=== PATIENT | male | born 1960 | race Caucasian/White ===

== ENCOUNTER 2018-08-24 12:14 | Inpatient (IN) ==
[2018-08-24] MEDS ORDERED: Chlorhexidine Gluconate 2% 1 Pack (2 Cloths) TOPICAL SCH (13:26)
[2018-08-24] MEDS ORDERED: Metoprolol Tartrate 25 MG Tablet PO SCH (13:26)
--- NOTE | 2018-08-24 13:37 | P.HPUP ---
The Pre-Admit History and Physical Examination regarding the above named patient was reviewed (including, but not limited to, vital signs, heart, lungs, co-morbid conditions), and upon re-examination it is noted that: the patient's condition has not significantly changed since the last examination.
[2018-08-24] MEDS ORDERED: Dextrose 5%/NaCl 0.9% Inj 1,000 ML IV.SIG SCH (13:45)
[2018-08-24] MEDS ORDERED: Sodium Chlor 0.9% Inj 500 ML IV.SIG SCH (14:00)
[2018-08-24] MEDS ORDERED: Lidocaine PF 1% Inj 5 ML Syringe OTHER ONE (14:05)
[2018-08-24] MEDS ORDERED: Sod Chloride 0.9% Inj 1,000 ML IV.CONT ONE (14:05)
[2018-08-24] MEDS ORDERED: Normosol-R pH 7.4 Inj 2,000 ML IV.CONT ONE (14:05)
--- NOTE | 2018-08-24 14:48 | P.OP ---
- Preoperative Diagnosis (1) Diverticulitis (2) Diverticulitis - Postoperative Diagnosis (1) Diverticulitis Date of procedure: 08/24/18 Procedure: Urethral dilatation, cystoscopy with placement of bilateral ureteral catheters Anesthesia: CAR Surgeon: Tarik Kidd DO Estimated blood loss (mL): 0 Operation and Findings: 58-year-old male with findings of diverticulitis who elected to undergo colon resection by Dr. Redd and Dr. Ansari. Request made for bilateral ureteral catheter insertion. Patient was brought to the operating room and placed in the dorsal lithotomy position. He was prepped and draped in usual sterile fashion, received preprocedure antibiotics and general endotracheal tube anesthesia was administered. Initially, the 22 Nicaraguan cystoscope was unable to be passed through the urethral meatus due to meatal stenosis. Urethral dilatation occurred with male sounds starting with an 18F and going up to a 24 Nicaraguan sound. The scope then passed and easily and the left ureteral orifice was identified. A 5 Nicaraguan opening catheter was inserted in the left ureters up into the kidney without difficulty. This was again repeated on the right side without difficulty. Gallegos was then inserted and the catheters were attached to the Gallegos. Patient tolerated procedure well.
[2018-08-24] MEDS ORDERED: Bupivacaine PF 0.5% Inj 30 ML Vial ONE ×3 (14:49)
[2018-08-24] MEDS ORDERED: fentaNYL Citrate Inj 100 MCG/2 ML Ampul ONE ×3 (15:08→17:43)
[2018-08-24] MEDS ORDERED: HYDROmorphone PF Inj 2 MG/ML Vial ONE ×2 (15:13→18:00)
[2018-08-24] MEDS ORDERED: Glycopyrrolate Inj 1 MG/5 ML Syringe IV.PUSH ONE (17:00)
[2018-08-24] MEDS ORDERED: Neostigmine Inj 5 MG/5 ML Syringe IV.PUSH ONE (17:00)
[2018-08-24] MEDS ORDERED: Potassium Chlor 20 mEq Premix 20 MEQ/100 ML PIGGYBACK IV.SIG PRN (17:33)
[2018-08-24] MEDS ORDERED: Acetaminophen 325 MG Tablet PO PRN (17:33)
[2018-08-24] MEDS ORDERED: Ketorolac Inj 30 MG/ML (IVP) Vial IV.PUSH PRN (17:33)
[2018-08-24] MEDS ORDERED: Potassium Chlor 40 mEq Premix 40 MEQ/100 ML PIGGYBACK IV.SIG PRN (17:33)
[2018-08-24] MEDS: KCL 20 mEq/D5W/NaCl 0.9% Inj 1,000 ML IV.CONT SCH (18:20)
[2018-08-24] MEDS ORDERED: Naloxone Inj 0.4 MG/ML Vial IV.PUSH PRN (18:52)
[2018-08-24] MEDS: Morphine Inj 30 MG/30 ML PCA.VIAL PCA PRN (21:43)
[2018-08-25] MEDS: KCL 20 mEq/D5W/NaCl 0.9% Inj 1,000 ML IV.CONT SCH ×4 (00:25→18:06)
[2018-08-25] MEDS: Morphine Inj 30 MG/30 ML PCA.VIAL PCA PRN ×2 (02:48→13:57)
[2018-08-25 04:16] LABS: Baso % (Auto) 0.2 % (0.0-2.0); Hematocrit 38.5 % (39.0-51.0); Hemoglobin 12.7 gm/dL (13.0-17.0); Lymph # (Auto) 0.4 th/mm3 (1.0-4.8); Lymph % (Auto) 2.6 % (9.0-44.0); Mean Corpuscular HGB Conc 33.1 % (32.0-36.0); Mean Corpuscular Hemoglobin 26.9 pg (27.0-34.0); Mean Corpuscular Volume 81.3 fL (80.0-100.0); Mean Platelet Volume 7.4 fL (7.0-11.0); Mono # (Auto) 0.8 th/mm3 (0.0-0.9); Mono % (Auto) 4.6 % (0.0-8.0); Neut # (Auto) 16.2 th/mm3 (1.8-7.7); Neut % (Auto) 92.6 % (16.0-70.0); Platelet Count 328 th/mm3 (150-450); Red Blood Count 4.73 mil/mm3 (4.50-5.90); Red Cell Distribution Width 16.6 % (11.6-17.2); White Blood Count 17.5 th/mm3 (4.0-11.0)
[2018-08-25 04:35] LABS: Anion Gap 10 meq/L (5-15); Blood Urea Nitrogen 7 mg/dL (7-18); Calcium 7.6 mg/dL (8.5-10.1); Carbon Dioxide 23.4 meq/L (21.0-32.0); Chloride 107 meq/L (98-107); Glomerular Filtration Rate Greater Than 89 mL/min (>89); Glucose,Random 216 mg/dL (74-106); Potassium 4.1 meq/L (3.5-5.1); Sodium 140 meq/L (136-145)
[2018-08-25] MEDS: Pantoprazole Inj 40 MG Vial IV.PUSH SCH (08:54)
[2018-08-25] MEDS: amLODIPine 10 MG Tablet PO SCH (08:56)
--- NOTE | 2018-08-25 10:59 | P.PNCS ---
Subjective Colorectal Surgery Post Op Day #: 1 Interval history: afebrile, VSS UO good FANY serous Objective Result Diagrams: 08/25/18 03:42 08/25/18 03:42 Objective Remarks: PE alert Abd - soft, wound dry, stoma viable Assessment and Plan - Plan Imp: stable post-op OOB decr IVF tx to floor
--- NOTE | 2018-08-25 14:57 | MP ---
cc: Ramírez Redd MD, Andrew H MD DATE OF OPERATION: 08/24/2018 DATE OF PROCEDURE: 08/24/2018 PREOPERATIVE DIAGNOSIS: Chronic diverticular disease with partial obstruction. PROCEDURE: Exploratory laparotomy with proctosigmoidectomy, low pelvic anastomosis, diverting ileostomy, appendectomy and omental flap, on- table bowel prep. POSTOPERATIVE DIAGNOSIS: Chronic diverticulitis with obstruction and localized abscess formation. SURGEON: Ramírez Redd MD CANT GANG SAWYER: Cosmo Kirk MD PROCEDURE: The patient was placed in the supine position. After adequate general anesthesia, his legs were placed in the universal stirrups and supported appropriately. The abdomen and perineum were then prepped with Betadine solution and draped in the usual sterile fashion. With Dr. Kirk's assistance, the abdomen was opened through an infraumbilical transverse incision, dividing the rectus muscles with electrocautery. Exploration revealed a rock hard mass in the right lower abdomen involving the cecum and appendix as well as loops of small bowel and the sigmoid colon. There was quite a bit of chronic inflammatory process, but no acute abscess was identified. Process was also stuck very densely adherent to the parietal peritoneum of the lower abdominal wall. The remainder of the small bowel was palpated to the ligament of Treitz and felt to be pretty unremarkable. The proximal colon was quite full of liquid stool and feces all the way back to the cecum. The liver and gallbladder were unremarkable. The stomach and duodenum were normal. The great vessels were of normal caliber. First, the sigmoid colon was mobilized medially by dividing along the white line of Toldt. The left ureteral stent was easily palpable and preserved. Dissection then proceeded, freeing the appendix from the inflammatory process noting it to be extremely thick walled and edematous. Therefore, it was elected to remove the appendix by dividing the mesoappendix between Raven's and stapling the appendix at its junction with the cecum using a TA 30 stapler. The remainder of the right colon and terminal ileum were then mobilized. Dense adhesions between the inflammatory process and the small bowel mesentery were also freed mobilizing the bowel up out of the pelvis. Attention was then turned to the pelvis and the right retroperitoneal space was then opened. The bowel dissected off the presacral fascia to try to preserve the presacral nerves. The pedicle for the superior hemorrhoidal vessels identified and divided between Raven's, obtaining hemostasis with Vicryl ties. The right ureteral stent was densely adherent to this inflammatory process, but was palpated and preserved along its entirety. Once the bowel mobilized down to the pelvis. The anterior cul-de-sac was opened and bowel dissected off the prostatic fascia and the seminal vesicles, finally obtaining what appeared to be softer bowel below the peritoneal reflection. The mesorectum was taken with electrocautery and the bowel finally divided in the proximal rectum, using a TA 60 stapling device. The bowel was then mobilized off the left gutter, taking down attachments to the splenic flexure for full left mobilization. The left colic vessels were able to be left intact. There was enough redundant bowel to reach the rectal pouch without tension and with good blood supply dividing the marginal artery at the appropriate point and then dividing the bowel between a pursestring suture device and a Lissett clamp removing the specimen. The end of the bowel was sized to accept a 33 mm EEA stapling anvil, and this was secured with the pursestring suture. Dr. Kirk inserted into the stapling instrument transanally and under direct vision came the rectal pouch. The trocar advanced. The stapler was then reassembled. The bowel aligned properly. The stapled closed and fired. Upon withdrawal 2 complete donuts of tissue was seen. Gentle insufflation did confirm an airtight anastomosis. ADDENDUM: It should be noted prior to the anastomosis the proximal bowel was prepped with several liters of normal saline until the effluent appeared clear. Finally, the abdomen was irrigated copiously. Adequate hemostasis achieved at all sites. The abscess cavity and the abdominal wall was curetted and cleaned for debridement. Joel-Juarez drain placed down into the presacral space and brought out through a stab wound in the right lower quadrant, secured to the skin with a nylon suture. A loop of distal ileum proximal to the inflammatory process was chosen and an avascular plane created in the mesentery. The distal limb was closed with a TA 30 stapling. A circular stab wound was created in the right upper quadrant and the loop brought up through the stab wound without tension and with good blood supply. . The omentum was then mobilized off the transverse colon and passed down the left gutter into the pelvis to wrap around the anastomosis and filled the abscess cavity. A transverse incision was then closed anatomically in 2 layers using #1 PDS sutures to reapproximate the respective fascial layers. On-Q catheters were placed into the rectus sheaths on both sides and brought up through subcutaneous tunnels above the transverse incision. The subcutaneous tissue was irrigated copiously and the skin closed with a row of surgical kelechi. Wound area washed with normal saline and dried, sterile dressing and Telfa and gauze applied. Finally, the ileostomy was matured in the usual Gladys fashion by creating a transverse enterotomy and maturing the proximal limb with a row of interrupted chromic catgut sutures around the circumference. At completion, the ileostomy appeared to be viable and was patent through the fascia level. A sterile ileostomy appliance was fitted over the new stoma. The patient tolerated the procedure quite well and was brought to the recovery room in stable condition. Sponge and needle counts were correct at the end of this procedure. Ramírez Redd MD [facility]/ , 11:49 AM , 12:03 PM
--- NOTE | 2018-08-25 18:14 | P.PNWCN ---
Wound Care Nurse Consult Description: Consult for New Ostomy Teaching per Dr Redd Communicated with: Patient Recommendation: Empty pouch when 1/3-1/2 full Change pouching system Q3-5D and when leaking Additional information: Patient seen on for ostomy assessment, teaching, and changing of pouch from urinary pouch to open ended pouch on ileostomy. Bowel Diversion Stoma - Bowel Stoma Right Lower Abdomen Stoma Appearance: Protruding, Round Collection Device: Two-piece Drainage Description: Soft, Liquid, Green Wafer Size: 2 1/ Moldable Stoma Care: Pouch Changed
[2018-08-26] MEDS: Morphine Inj 30 MG/30 ML PCA.VIAL PCA PRN (01:26)
[2018-08-26 05:03] LABS: Baso # (Auto) 0.1 th/mm3 (0.0-0.2); Baso % (Auto) 0.3 % (0.0-2.0); Eos % (Auto) 0.2 % (0.0-4.0); Hematocrit 37.1 % (39.0-51.0); Hemoglobin 12.4 gm/dL (13.0-17.0); Lymph # (Auto) 1.6 th/mm3 (1.0-4.8); Lymph % (Auto) 9.8 % (9.0-44.0); Mean Corpuscular HGB Conc 33.5 % (32.0-36.0); Mean Corpuscular Hemoglobin 26.8 pg (27.0-34.0); Mean Platelet Volume 7.6 fL (7.0-11.0); Mono # (Auto) 1.1 th/mm3 (0.0-0.9); Mono % (Auto) 6.7 % (0.0-8.0); Neut # (Auto) 13.2 th/mm3 (1.8-7.7); Platelet Count 333 th/mm3 (150-450); Red Blood Count 4.64 mil/mm3 (4.50-5.90); Red Cell Distribution Width 16.9 % (11.6-17.2); White Blood Count 15.9 th/mm3 (4.0-11.0)
[2018-08-26 05:43] LABS: Anion Gap 6 meq/L (5-15); Blood Urea Nitrogen 4 mg/dL (7-18); Calcium 8.2 mg/dL (8.5-10.1); Carbon Dioxide 26.6 meq/L (21.0-32.0); Chloride 104 meq/L (98-107); Glomerular Filtration Rate Greater Than 89 mL/min (>89); Glucose,Random 106 mg/dL (74-106); Sodium 137 meq/L (136-145)
[2018-08-26] MEDS: KCL 20 mEq/D5W/NaCl 0.9% Inj 1,000 ML IV.CONT SCH ×2 (06:00→17:25)
[2018-08-26] MEDS: Pantoprazole Inj 40 MG Vial IV.PUSH SCH (08:41)
[2018-08-26] MEDS: amLODIPine 10 MG Tablet PO SCH (08:42)
--- NOTE | 2018-08-26 11:42 | P.PNWCN ---
Wound Care Nurse Consult Description: Consult for New Ostomy Teaching per Dr Redd Communicated with: Patient Recommendation: Empty pouch when 1/3-1/2 full Change pouching system using 1 3/4" moldable wafer Q3-5D and when leaking Additional information: Patient seen on for ostomy assessment, pouching system change, and reinforcement of teaching with demonstration. Consent obtained for starter kit to be sent out, which was done today. Patient needs script on chart for supplies before discharge. Bowel Diversion Stoma - Bowel Stoma Right Lower Abdomen Stoma Edema: Yes Stoma Appearance: Oval (red and moist and functioning), Protruding Collection Device: Two-piece (1 3/4") Drainage Description: Liquid, Green Wafer Size: 1 3/4 Moldable 45mm Stoma Care: Pouch Changed, Skin Care (Supplies ordered from [facility] for patient to go home with at discharge) Nathaly-Stomal Skin Appearance: Intact Nathaly-Stomal Surrounding Tissue Sensation Description: No Symptoms
[2018-08-26] MEDS: Metoprolol Inj 5 MG/5 ML Vial IV.PUSH PRN (20:16)
--- NOTE | 2018-08-26 21:22 | P.PNCS ---
Subjective Colorectal Surgery Post Op Day #: 2 Interval history: afebrile, VSS UO good FANY mod Objective Result Diagrams: 08/26/18 04:06 08/26/18 04:06 Objective Remarks: PE alert Abd - soft, wound dry, stoma viable min tympany Assessment and Plan - Plan Imp: mark PINEDA decr IVF tx to floor
[2018-08-26] MEDS ORDERED: LORazepam 1 MG Tablet PO ONE (21:45)
[2018-08-27] MEDS: Morphine Inj 30 MG/30 ML PCA.VIAL PCA PRN (03:30)
[2018-08-27] MEDS: KCL 20 mEq/D5W/NaCl 0.9% Inj 1,000 ML IV.CONT SCH ×2 (05:45→15:31)
[2018-08-27] MEDS: Pantoprazole Inj 40 MG Vial IV.PUSH SCH (08:36)
[2018-08-27] MEDS: amLODIPine 10 MG Tablet PO SCH (08:37)
[2018-08-27] MEDS: Metoprolol Inj 5 MG/5 ML Vial IV.PUSH PRN (12:38)
[2018-08-27 12:51] LABS: Anion Gap 10 meq/L (5-15); Blood Urea Nitrogen 10 mg/dL (7-18); Calcium 8.5 mg/dL (8.5-10.1); Chloride 106 meq/L (98-107); Glomerular Filtration Rate Greater Than 89 mL/min (>89); Glucose,Random 137 mg/dL (74-106); Magnesium 1.7 mg/dL (1.5-2.5); Potassium 3.6 meq/L (3.5-5.1); Sodium 140 meq/L (136-145)
--- NOTE | 2018-08-27 17:50 | P.PNWCN ---
Wound Care Nurse Consult Description: Consult for follow up Teaching per Dr Redd Communicated with: RN Dolly [facility] and patient Recommendation: Empty pouch when 1/3-1/2 full Change pouching system using 1 3/4" moldable wafer Q3-5D and when leaking Bowel Diversion Stoma - Bowel Stoma Right Lower Abdomen Stoma Edema: Yes Stoma Appearance: Beefy Red, Protruding, Round Loop Supporting Dillan: No Collection Device: Two-piece, Moldable Wafer Drainage Description: Liquid, Green Wafer Size: 1 3/4 Moldable 45mm Nathaly-Stomal Surrounding Tissue Sensation Description: No Symptoms - Additional Information Additional Information: Patient seen on for follow up ileostomy teaching and stoma assessment. Stoma presents as red in color, round, and protruding. Per RN, Ileostomy appliance was changed earlier today due to leaking. Ileostomy appliance is currently dry and intact. RN to empty pouch when 1/3 to 1/2 full.
--- NOTE | 2018-08-27 17:52 | P.DCO ---
- Physical Therapy Order: Evaluate and treat, Improve ambulation, Strength and gait training - Case Management Consult Yes - Certification I have seen patient Fernando Culp on 08/27/18. My clinical findings support the need for the requested home health care services because: Limited mobility due to disease progression, Deconditioned with increased weakness, High risk of falls I certify that my clinical findings support that this patient is homebound because: Post-op weakness, Unsafe to leave home unassisted (stoma care)
--- NOTE | 2018-08-27 21:35 | P.PNCS ---
Subjective Colorectal Surgery Post Op Day #: 3 Interval history: afebrile, VSS - HR 140 stoma functioning UO good Objective Result Diagrams: 08/26/18 04:06 08/27/18 12:10 Objective Remarks: PE alert Abd - soft, wound dry, stoma viable min tympany, On -Q dc'd Assessment and Plan - Assessment (1) Diverticulitis Code(s): K57.92 - Diverticulitis of intestine, part unspecified, without perforation or abscess without bleeding Status: Acute - Plan Imp: lasix OOB decr IVF lopressor to decr HR
[2018-08-28] MEDS: KCL 20 mEq/D5W/NaCl 0.9% Inj 1,000 ML IV.CONT SCH ×2 (06:09→19:35)
[2018-08-28] MEDS: Pantoprazole Inj 40 MG Vial IV.PUSH SCH (08:07)
[2018-08-28] MEDS: amLODIPine 10 MG Tablet PO SCH (08:07)
[2018-08-28] MEDS: Metoprolol Inj 5 MG/5 ML Vial IV.PUSH PRN (08:07)
--- NOTE | 2018-08-28 10:07 | P.PNCS ---
Subjective Colorectal Surgery Post Op Day #: 4 Interval history: Pt quite anxious. Wants to go home. Still has sinus tachycardia. Will start oral Lopressor. Just started Regular diet Objective Result Diagrams: 08/26/18 04:06 08/27/18 12:10 Objective Remarks: Abd: soft,flat. Wound clean. Ileostomy working. Assessment and Plan - Assessment (1) Diverticulitis Code(s): K57.92 - Diverticulitis of intestine, part unspecified, without perforation or abscess without bleeding Status: Acute - Plan Start PO Lopressor Needs solid food and monitor Ileostomy output before D/C.
[2018-08-28] MEDS: Metoprolol Tartrate 25 MG Tablet PO SCH ×2 (13:15→17:58)
[2018-08-28 23:23] VITALS: O2SAT 98
[2018-08-29] MEDS: Metoprolol Tartrate 25 MG Tablet PO SCH ×2 (08:55→12:52)
[2018-08-29] MEDS: amLODIPine 10 MG Tablet PO SCH (08:55)
[2018-08-29] MEDS: Pantoprazole Inj 40 MG Vial IV.PUSH SCH (08:57)
[2018-08-29 11:16] VITALS: BP 133/90; PULSE 98; RESP 17; TEMP 98.9
--- NOTE | 2018-08-30 16:14 | P.DCO ---
- Home Health Nursing Order: Medical education, Signs/symptoms of disease process, Wound care and dressing changes - Case Management Consult Yes - Certification I have seen patient Fernando Culp on 08/30/18. My clinical findings support the need for the requested home health care services because: Deconditioned with increased weakness, Need for psychosocial assistance, Infection with risk of complications I certify that my clinical findings support that this patient is homebound because: Post-op weakness, Unsafe to leave home unassisted (stoma care)
--- NOTE | 2018-09-09 10:58 | MD ---
cc: Ramírez Redd MD, Teresa DATE OF DISCHARGE: 08/29/2018 ADMITTING DIAGNOSIS: History of diverticulitis. PROCEDURES: On 08/24/2018, exploratory laparotomy with proctosigmoidectomy, low pelvic anastomosis, diverting ileostomy, appendectomy, and omental flap, on-table bowel prep. DISCHARGE DIAGNOSES: Complex chronic diverticulitis with obstruction and localized abscess formation. HISTORY OF PRESENT ILLNESS: Mr. Culp is a 58-year-old male who has been in relatively good health being followed as an outpatient now for abdominal pain consistent with diverticulitis. He has gotten somewhat improved with courses of antibiotics; however, he has gotten worse each time the antibiotics have been stopped. The patient has had a CT scan showing significant inflammation of the rectosigmoid. Despite maximal medical management, his symptoms continued to worsen and he was brought to the operating room today for an elective resection of the involved sigmoid colon. Please see the admitting history and physical for more complete past medical and surgical history. PERTINENT PHYSICAL: Very pleasant, well-developed male in no acute distress. Abdomen was soft and flat, not really distended. Normal bowel sounds. There was some tenderness in the lower abdomen. No rebound, guarding, or masses. Anal inspection revealed benign canal. Digital exam revealed good tone with no masses or tenderness and smooth mucosa. HOSPITAL COURSE: After admission, the patient was taken to the operating room where he was found to have an extremely chronic phlegmon in the pelvis involving the rectosigmoid, appendix, and cecum. There was a small abscess cavity, but no active acute inflammation. The patient underwent a proctosigmoidectomy with low pelvic anastomosis. Due to the amount of inflammation and obstruction, he needed an on-table bowel prep and a diverting ileostomy, appendectomy as well due to the involvement of the appendix and cecum. The patient tolerated the procedure quite well. Postoperatively, he was stabilized in the progressive care unit. His GI tract function returned quite promptly and his diet was advanced accordingly. The patient education was able to help with the teaching of his new ileostomy care. The patient did have a sinus tachycardia treated with Lopressor and appeared to resolve quite promptly. The patient was eating well, ambulating without any trouble, and considered ready for discharge home on 08/29/2018. Final pathology report revealed segment of acute diverticulitis with pericolonic abscess formation, giant cell reaction, and localized perforation. The appendix did show a periappendiceal abscess and extensive fibrosis luminal obliteration. No evidence of malignancy. DISCHARGE INSTRUCTIONS: The patient was discharged eating a regular diet. He was encouraged to increase his fluid content to help offset the ileostomy losses. Home health was arranged to help with care of his new ileostomy. The patient will continue his home medications with the addition of the Lopressor and will be referred back to his family doctor for further evaluation and medical evaluation. The patient will be seen in the office in 1 week's time for routine followup. Any problems prior to his scheduled office visit, he was encouraged to call for more urgent attention. Ramírez Redd MD [facility]/rs , 10:37 AM , 10:47 AM
== END 2018-08-29 12:45 | disposition home health service (06) ==
LOC: HSDI 12:14 → HCPC 18:47 → N07 08-27 01:25 → HCPC 08-27 11:15
PROVIDERS: ADMIT Colon & Rectal Surgery; ATTEND Colon & Rectal Surgery

== ENCOUNTER 2018-10-25 12:02 | Inpatient (IN) ==
[2018-10-25] MEDS ORDERED: Chlorhexidine Gluconate 2% 1 Pack (2 Cloths) TOPICAL ONE (12:51)
[2018-10-25] MEDS ORDERED: Metoprolol Tartrate 25 MG Tablet PO ONE (12:51)
[2018-10-25] MEDS ORDERED: Dextrose 5%/NaCl 0.9% Inj 1,000 ML IV.CONT SCH (13:00)
[2018-10-25] MEDS ORDERED: ceFAZolin 1 GM Premix Inj 1 GM/50 ML IV.SIG SCH (13:00)
[2018-10-25] MEDS ORDERED: Sodium Chlor 0.9% Inj 500 ML IV.SIG SCH (13:00)
[2018-10-25] MEDS ORDERED: Bupivacaine 0.5% Inj 50 ML MDV Vial ONE (13:47)
[2018-10-25 13:49] LABS: Baso % (Auto) 0.4 % (0.0-2.0); Eos # (Auto) 0.1 th/mm3 (0.0-0.4); Eos % (Auto) 0.8 % (0.0-4.0); Hematocrit 40.7 % (39.0-51.0); Hemoglobin 14.5 gm/dL (13.0-17.0); Lymph # (Auto) 1.6 th/mm3 (1.0-4.8); Lymph % (Auto) 18.2 % (9.0-44.0); Mean Corpuscular HGB Conc 35.7 % (32.0-36.0); Mean Corpuscular Hemoglobin 29.7 pg (27.0-34.0); Mean Corpuscular Volume 83.1 fL (80.0-100.0); Mean Platelet Volume 7.4 fL (7.0-11.0); Mono # (Auto) 0.6 th/mm3 (0.0-0.9); Mono % (Auto) 6.4 % (0.0-8.0); Neut # (Auto) 6.7 th/mm3 (1.8-7.7); Neut % (Auto) 74.2 % (16.0-70.0); Platelet Count 237 th/mm3 (150-450); Red Blood Count 4.89 mil/mm3 (4.50-5.90); Red Cell Distribution Width 15.6 % (11.6-17.2)
[2018-10-25] MEDS ORDERED: Potassium Chlor 20 mEq Premix 20 MEQ/100 ML PIGGYBACK IV.SIG PRN (15:34)
[2018-10-25] MEDS ORDERED: Acetaminophen 325 MG Tablet PO PRN (15:34)
[2018-10-25] MEDS ORDERED: Ketorolac Inj 30 MG/ML (IVP) Vial IV.PUSH PRN (15:34)
[2018-10-25] MEDS ORDERED: Potassium Chlor 40 mEq Premix 40 MEQ/100 ML PIGGYBACK IV.SIG PRN (15:34)
[2018-10-25] MEDS ORDERED: Naloxone Inj 0.4 MG/ML Vial IV.PUSH PRN (15:34)
[2018-10-25] MEDS ORDERED: fentaNYL Citrate Inj 100 MCG/2 ML Ampul ONE (15:38)
[2018-10-25] MEDS ORDERED: Morphine Inj 4 MG/ML Vial ONE (15:39)
[2018-10-25] MEDS ORDERED: *morphine SULFATE 4 MG/ML PERIprocedure ONLY ONE ×2 (15:48→16:01)
[2018-10-25] MEDS ORDERED: Morphine Inj 30 MG/30 ML PCA.VIAL PCA ONE (15:52)
[2018-10-25] MEDS ORDERED: KCL 20 mEq/D5W/NaCl 0.9% Inj 1,000 ML ONE (15:52)
[2018-10-25] MEDS: Morphine Inj 30 MG/30 ML PCA.VIAL PCA PRN (16:13)
[2018-10-25] MEDS: KCL 20 mEq/D5W/NaCl 0.9% Inj 1,000 ML IV.CONT SCH ×2 (16:13→22:40)
[2018-10-25] MEDS: ceFAZolin 1 GM Premix Inj 1 GM/50 ML IV.SIG SCH (22:38)
[2018-10-25] MEDS: Metoprolol Tartrate 25 MG Tablet PO SCH (22:38)
[2018-10-26] MEDS: Morphine Inj 30 MG/30 ML PCA.VIAL PCA PRN (05:13)
[2018-10-26] MEDS: ceFAZolin 1 GM Premix Inj 1 GM/50 ML IV.SIG SCH ×2 (05:17→08:15)
[2018-10-26 05:26] LABS: Hematocrit 41.2 % (39.0-51.0); Hemoglobin 14.2 gm/dL (13.0-17.0); Lymph % (Auto) 8.9 % (9.0-44.0); Mean Corpuscular HGB Conc 34.5 % (32.0-36.0); Mean Corpuscular Hemoglobin 28.8 pg (27.0-34.0); Mean Corpuscular Volume 83.4 fL (80.0-100.0); Mean Platelet Volume 7.6 fL (7.0-11.0); Mono # (Auto) 0.5 th/mm3 (0.0-0.9); Mono % (Auto) 4.7 % (0.0-8.0); Neut # (Auto) 9.2 th/mm3 (1.8-7.7); Neut % (Auto) 86.4 % (16.0-70.0); Platelet Count 245 th/mm3 (150-450); Red Blood Count 4.95 mil/mm3 (4.50-5.90); Red Cell Distribution Width 15.7 % (11.6-17.2); White Blood Count 10.7 th/mm3 (4.0-11.0)
[2018-10-26] MEDS: KCL 20 mEq/D5W/NaCl 0.9% Inj 1,000 ML IV.CONT SCH ×2 (05:27→11:18)
[2018-10-26 05:50] LABS: Anion Gap 6 meq/L (5-15); Blood Urea Nitrogen 8 mg/dL (7-18); Calcium 8.3 mg/dL (8.5-10.1); Carbon Dioxide 24.8 meq/L (21.0-32.0); Chloride 108 meq/L (98-107); Glomerular Filtration Rate Greater Than 89 mL/min (>89); Glucose,Random 147 mg/dL (74-106); Sodium 139 meq/L (136-145)
[2018-10-26] MEDS: Metoprolol Tartrate 25 MG Tablet PO SCH ×3 (08:15→17:28)
[2018-10-26] MEDS: amLODIPine 10 MG Tablet PO SCH (08:16)
[2018-10-26] MEDS: Pantoprazole Inj 40 MG Vial IV.PUSH SCH (08:16)
--- NOTE | 2018-10-26 08:23 | MP ---
cc: Ramírez Redd MD DATE OF OPERATION: 10/25/2018 PREOPERATIVE DIAGNOSIS: History of diverticulitis, attention to ileostomy. POSTOPERATIVE DIAGNOSIS: History of diverticulitis attention to ileostomy. PROCEDURE PERFORMED: Exploratory laparotomy with segmental small bowel resection and closure of ileostomy. SURGEON: Ramírez Redd MD PROCEDURE: The patient was placed in the supine position. After adequate general anesthesia, his abdomen was prepped with Betadine solution and draped in the usual sterile fashion. An elliptical incision was made around the ileostomy, dissecting the proximal and distal limbs from the subcutaneous tissue. The fascial attachments were released and the bowel mobilized up out of the abdomen. There were some adhesions to the parietal peritoneum, which were also divided. A vascular plane was created proximal and distal to the ileostomy and the distal end divided between Kochers, proximal end divided using the CHAVA stapling device. The intervening mesentery taken between Raven's, obtaining hemostasis with Vicryl ties. Bowel continuity was then restored by firing the CHAVA stapler across the antimesenteric ends of the bowel, closing the enterotomy with a TA60 stapler. The mesenteric defect closed with a Vicryl suture. A 3-0 Vicryl crotch suture was placed as well. The bowel returned to the abdominal cavity. The abdominal wound was then closed anatomically in 2 layers using #1 PDS sutures to reapproximate the respective fascial layers. The subcutaneous tissue was irrigated copiously and the skin closed with a running subcuticular Vicryl suture. Wound area washed with normal saline and dried, sterile dressing of Telfa and gauze applied. The patient tolerated the procedure quite well and was brought to the recovery room in stable condition. Sponge and needle counts were correct at the end of the procedure. Ramírez Redd MD [facility]/kiki/naseem , 07:08 AM , 07:15 AM
[2018-10-26] MEDS ORDERED: NACL 0.9% IV.SIG SCH (17:45)
[2018-10-26] MEDS ORDERED: POTASSIUM CHLORIDE IV.SIG SCH (17:45)
[2018-10-26] MEDS ORDERED: DEXTROSE IV.SIG SCH (17:45)
--- NOTE | 2018-10-26 23:20 | P.PNCS ---
Subjective Colorectal Surgery Post Op Day #: 1 Interval history: afebrile, VSS UO good +flatus Objective Result Diagrams: 10/26/18 03:59 10/26/18 03:59 Objective Remarks: PE alert, VSS Abd - soft, flat, wound dry Assessment and Plan - Plan Imp: stable post-op OOB decr IVF adv diet DC olivera
[2018-10-27 06:24] LABS: Baso % (Auto) 0.3 % (0.0-2.0); Eos # (Auto) 0.2 th/mm3 (0.0-0.4); Eos % (Auto) 1.7 % (0.0-4.0); Hemoglobin 14.7 gm/dL (13.0-17.0); Lymph # (Auto) 1.6 th/mm3 (1.0-4.8); Lymph % (Auto) 14.6 % (9.0-44.0); Mean Corpuscular HGB Conc 35.9 % (32.0-36.0); Mean Corpuscular Hemoglobin 29.6 pg (27.0-34.0); Mean Corpuscular Volume 82.4 fL (80.0-100.0); Mean Platelet Volume 7.6 fL (7.0-11.0); Mono % (Auto) 8.6 % (0.0-8.0); Neut # (Auto) 8.4 th/mm3 (1.8-7.7); Neut % (Auto) 74.8 % (16.0-70.0); Platelet Count 228 th/mm3 (150-450); Red Blood Count 4.98 mil/mm3 (4.50-5.90); Red Cell Distribution Width 15.7 % (11.6-17.2); White Blood Count 11.2 th/mm3 (4.0-11.0)
[2018-10-27 06:55] LABS: Anion Gap 7 meq/L (5-15); Blood Urea Nitrogen 7 mg/dL (7-18); Calcium 8.7 mg/dL (8.5-10.1); Chloride 106 meq/L (98-107); Glomerular Filtration Rate Greater Than 89 mL/min (>89); Glucose,Random 96 mg/dL (74-106); Potassium 3.5 meq/L (3.5-5.1); Sodium 138 meq/L (136-145)
[2018-10-27] MEDS: Metoprolol Tartrate 25 MG Tablet PO SCH ×2 (10:00→15:25)
[2018-10-27] MEDS: amLODIPine 10 MG Tablet PO SCH (10:00)
[2018-10-27] MEDS: Pantoprazole Inj 40 MG Vial IV.PUSH SCH (10:00)
[2018-10-27] MEDS: KCL 20 mEq/D5W/NaCl 0.9% Inj 1,000 ML IV.CONT SCH (10:01)
== END 2018-10-27 14:57 | disposition home or self-care (01) ==
LOC: HSDI 12:02 → N07 18:49 → UNDODISIN 10-27 14:21
PROVIDERS: ADMIT Colon & Rectal Surgery; ATTEND Colon & Rectal Surgery